=== PATIENT | male | born 1955 | race Caucasian/White ===

== ENCOUNTER → 2016-08-26 | Outpatient (CLI) | payer OTHER ==
[~2016-08-26] MED LIST: ALBUTEROL 0.083% (NEB) 2.5 MG/3 ML AMP ONE
[2016-08-26 14:23] LABS: AADO2 Arterial 24.2 mmHg (7.0-24.0); Allen Test ACCEPTAB; Arterial Base Excess 0.5 mmol/L (-3.0-3); Arterial COHb 0.2 % (0.0-3.0); Arterial Fraction of Oxyhgb 95.3 % (93.0-99.0); Arterial HCO3 25.3 mmol/L (22.0-26.0); Arterial MetHb 0.3 % (0.0-1.5); Arterial Total Hemglobin 16.9 g/dl (12.0-18.0); MODE ROOM AIR
== END | disposition home or self-care (01) ==
LOC: PUL 13:59
PROVIDERS: ATTEND Family Medicine
DX: K46.9 Unspecified abdominal hernia without obstruction or gangrene (principal); R05 Cough
CPT/HCPCS: 36600; 82803; 94060; 94726; 94729; Z7610

== ENCOUNTER 2016-10-28 10:32 | Day surgery (SDC) | payer OTHER ==
[2016-10-25 15:36] VITALS: BMI 31.4
[~2016-10-28] VITALS: Ht 182.9 cm; Wt 107.1 kg
[2016-10-28] VITALS (16 sets, daily range): BP systolic 118–166; BP diastolic 67–91; PULSE 74–84; RESP 10–22; Ht 182.9 cm; Wt 107.1 kg
[~2016-10-28 10:32] MED LIST changes: -ALBUTEROL 0.083% (NEB) 2.5 MG/3 ML AMP ONE; +CEFAZOLIN 2 GM/50 ML (PMX) 50 ML IVPB ONE; +SOD CHLORIDE 0.9% 1,000 ML IV SCH
[2016-10-28] MEDS ORDERED: ATOR20TA38 PO (11:06)
[2016-10-28] MEDS ORDERED: DOXY100T20 PO (11:07)
[2016-10-28] MEDS ORDERED: BUPIVACAINE 0.25% (MPF) 10 ML 10 ML VIAL ONE (12:11)
[2016-10-28] MEDS ORDERED: MIDAZOLAM 1 MG/ML 2 ML INJ ONE ×2 (12:30→14:09)
[2016-10-28] MEDS ORDERED: PROPOFOL 20 ML ONE (12:30)
[2016-10-28] MEDS ORDERED: FENTAnyl 50 MCG/ML VIAL ONE ×2 (12:30→13:52)
[2016-10-28] MEDS ORDERED: LIDOCAINE 2% (SDV) 5 ML INJ ONE (12:30)
[2016-10-28] MEDS ORDERED: ROCURONIUM 50 MG INJ ONE (12:30)
[2016-10-28] MEDS ORDERED: ROPIVACAINE 0.5 % 30 ML VIAL ONE (12:43)
[2016-10-28] MEDS ORDERED: CEFAZOLIN 1 GM INJ ONE (12:50)
[2016-10-28] MEDS ORDERED: ONDANSETRON 4 MG INJ ONE (12:54)
[2016-10-28] MEDS ORDERED: DEXAMETHASONE 4 MG/ML 1 ML INJ ONE (12:54)
[2016-10-28] MEDS ORDERED: BUPIVACAINE 0.25% (MPF) 30 ML INJ ONE (12:59)
[2016-10-28] MEDS ORDERED: BUPIVACAINE 0.25% (MPF) 10 ML 10 ML VIAL INJ ONE (13:00)
[2016-10-28] MEDS ORDERED: POLYMYXIN/BACITRACIN 1L IRRIG ONE (13:11)
[2016-10-28] MEDS ORDERED: HYDROCODONE/APAP (5/325) TAB PO ONE (13:30)
[2016-10-28] MEDS ORDERED: SUGAMMADEX SODIUM 200 MG/2 ML VIAL IV ONE (13:31)
--- NOTE | 2016-10-28 13:31 | OPR ---
Date/Time of Note Date/Time of Note DATE: 10/28/16 TIME: 13:25 Operative Report Procedure Date: Oct 28, 2016 Preoperative Diagnosis incarcerated ventral hernia Postoperative Diagnosis same Operation Performed 1. open repair of incarcerated ventral hernia cpt code 26756 2. implantation of mesh cpt code 19722 3. therapeutic injection of subcutaneous marcaine cpt code 86120 Surgeon: Oneil WITT Indications This is a 61-year-old male with an incarcerated ventral hernia. He has a history of a prior laparotomy for peritonitis. Patient is scheduled to undergo an open hernia repair with mesh. Risks alternatives benefits and percent were discussed the patient. Patient expresses understanding consents to the operation. Procedure Description Patient is taken to the OR and prepped and draped in usual sterile fashion surgical timeout was performed IV antibiotics are given. Mid epigastric midline incision is made with a 10 blade dissection cautery was carried onto the hernia. Incarcerated hernia contents are identified. Careful dissection is made of the hernia defect. This defect is then extended superiorly in the midline to allow for reduction of the incarcerated hernia. After the hernias reduced fascial edges are freshened on all sides and directions. The fascia was grasped with Caroleen's. Interrupted #1 Prolene is used to secure the underlay mesh of [address] There is underlay coverage of approximately 45 cm on all directions. The hernia defect is then closed primarily with a running #1 loop PDS. The skin is then closed with skin martin. Therapeutic injection of subcutaneous Marcaine is performed. Dry dressings were applied. Oneil WITT Oct 28, 2016 13:31
[2016-10-28] MEDS: HYDROmorphONE (0.2 MG/ML) 10ML SYG IV PRN ×4 (13:44→14:46)
[2016-10-28] MEDS: FENTAnyl 50 MCG/ML VIAL IV PRN ×3 (13:45→14:46)
[2016-10-28] MEDS ORDERED: HYDROmorphONE (0.2 MG/ML) 10ML SYG IV ONE (13:46)
[2016-10-28] MEDS ORDERED: ONDANSETRON 4 MG INJ IV PRN (14:00)
[2016-10-28] MEDS ORDERED: DIPHENHYDRAMINE 50 MG INJ IV PRN (14:00)
[2016-10-28] MEDS ORDERED: MEPERIDINE 25 MG INJ IV PRN (14:00)
[2016-10-28] MEDS ORDERED: PROCHLORPERAZINE 10 MG INJ IV PRN (14:00)
[2016-10-28] MEDS ORDERED: MIDAZOLAM 1 MG/ML 2 ML INJ IV PRN (14:30)
[2016-10-28] MEDS ORDERED: OXYCODONE/ACETAMINOPHEN (5/325) TAB PO ONE ×2 (15:00→15:30)
[2016-10-28] MEDS ORDERED: OXYCODONE/ACETAMINOPHEN (5/325) TAB ONE (15:01)
== END 2016-10-28 16:15 | disposition home or self-care (01) ==
LOC: SDS 10:32
PROVIDERS: ATTEND Surgery
DX: K43.6 Other and unspecified ventral hernia with obstruction, without gangrene (principal); E66.9 Obesity, unspecified; Z68.32 Body mass index [BMI] 32.0-32.9, adult
CPT/HCPCS: 49561; 49568; C1781; J0690; J1100; J1170; J1200; J2175; J2250; J2405; J2795; J3010; Z7512; Z7610

== ENCOUNTER 2016-11-11 01:40 | Emergency (ER) | payer OTHER ==
[~2016-11-11 01:40] MED LIST changes: +ATOR20TA38 PO; -CEFAZOLIN 2 GM/50 ML (PMX) 50 ML IVPB ONE; +DOXY100T20 PO; -SOD CHLORIDE 0.9% 1,000 ML IV SCH
[2016-11-11] MEDS ORDERED: METR500T PO (02:28)
[2016-11-11] MEDS ORDERED: CIPR500T4 PO (02:28)
[2016-11-11] MEDS ORDERED: OXYC-209 PO (02:28)
[2016-11-11] MEDS ORDERED: VANCOMYCIN 1 GM (PMX) 250 ML IVPB SCH (02:30)
[2016-11-11] MEDS ORDERED: PIPER-TAZO 3.375 GM IV (PMX) 100 ML IVPB ONE (02:30)
--- NOTE | 2016-11-11 03:39 | ERD ---
ER Documentation Chief Complaint Date/Time DATE: 11/11/16 TIME: 03:36 Chief Complaint Abdominal pain HPI Patient is a 61-year-old male who presents with abdominal pain. The patient has bleeding from the surgical site as well as abdominal pain. He had surgery 1 -[address] Glass. He called Dr. Glass who told to go to emergency department. The pain is sharp and constant. ROS All systems reviewed and are negative except as per history of present illness. Medications Home Meds Active Scripts Oxycodone HCl/Acetaminophen (Percocet 10-325 mg Tablet) 1 Each Tablet, 1 EACH PO Q6, #12 TAB Prov:AIDE SALTER MD 11/11/16 Metronidazole* (Flagyl*) 500 Mg Tablet, 500 MG PO TID for 7 Days, TAB Prov:AIDE SALTER MD 11/11/16 Ciprofloxacin Hcl* (Ciprofloxacin Hcl*) 500 Mg Tablet, 500 MG PO BID for 7 Days , TAB Prov:AIDE SALTER MD 11/11/16 Reported Medications Doxycycline Hyclate* (Doxycycline Hyclate*) 100 Mg Tablet., 100 MG PO BID, TAB 10/28/16 Atorvastatin Calcium* (Atorvastatin Calcium*) 20 Mg Tablet, 20 MG PO QHS, #30 TAB 10/28/16 Allergies Allergies: Coded Allergies: No Known Allergies (Verified Allergy, Unknown, 10/28/16) PMhx/Soc History of Surgery: Yes (RT TESTICLE SX 8 MOS AGO,APPY WITH COMPLICATION( PERITONITIS)) Anesthesia Reaction: No Hx Neurological Disorder: No Hx Respiratory Disorders: Yes (COPD/ASTHMA) Hx Cardiac Disorders: No Hx Psychiatric Problems: No Hx Miscellaneous Medical Probl: Yes Hx Alcohol Use: No Hx Substance Use: No Hx Tobacco Use: No FmHx Family History: No diabetes Physical Exam Physical Exam Const: Moderate distress secondary to pain Head: Atraumatic Eyes: Normal Conjunctiva ENT: Normal External Ears, Nose and Mouth. Neck: Full range of motion..~ No meningismus. Resp: Clear to auscultation bilaterally Cardio: Regular rate and rhythm, no murmurs Abd: Soft, distended abdomen, mild dehiscence of the surgical site wound, no obvious julien bleeding at this time Skin: No petechiae or rashes Back: No midline or flank tenderness Ext: No cyanosis, or edema Neur: Awake and alert Psych: Normal Mood and Affect Results 24 hrs Current Medications Medications (Trade) Dose Ordered Sig/Charles Route PRN Reason Start Time Stop Time Status Last Admin Dose Admin Piperacillin Sod/ Tazobactam Sod 100 ml @ 200 mls/hr ONCE ONCE IVPB 11/11/16 02:30 11/11/16 02:30 DC Vancomycin HCl (Vancocin) 250 ml @ 125 mls/hr ONCE IVPB 11/11/16 02:30 11/11/16 02:30 DC Procedures/MDM CT scan done shows post surgical subcutaneous and intra-abdominal abscess at the ventral midline lower abdomen with adjacent surrounding flat inflammatory changes per radiology. Laboratory studies show a normal white blood cell count and normal electrolytes and LFTs as well as lipase. Urinalysis shows no signs of acute infection. Patient is a 61-year-old male who presents with abdominal pain and intra- abdominal abscess. I wanted to admit him to the hospital but he is adamantly refusing at this time. The patient wants to leave and follow-up with his surgeon as an outpatient. I will give him Cipro and Flagyl as well as [place] for pain. I did want to admit the patient with the patient is going to leave AGAINST MEDICAL ADVICE. The patient can return for any worsening symptoms. Please note that the patient was initially registered under the name Roger Ayala and the laboratory results and CT scan results would be under that name. Departure Diagnosis: Primary Impression: Abscess Additional Impression: Post surgical complication Surgical complication system/body Area: skin Surgical complication type: unspecified Procedure type: non-dermatologic Qualified Code: L76.82 - Postoperative surgical complication involving skin associated with non- dermatologic procedure, unspecified complication Condition: Fair Patient Instructions: Post Op Wound Check, Infection Referrals: Oneil GLASS Additional Instructions: SPECIALIST: YOU HAVE A MEDICAL CONDITION WHICH REQUIRES YOU TO SEE A SPECIALIST WITHIN THE NEXT 1-2 DAYS. PLEASE FOLLOW UP WITH YOUR PRIMARY PHYSICIAN FOR REFFERAL.IF YOU DO NOT HAVE A PRIMARY CARE PHYSICIAN AND/OR YOU CAN NOT AFFORD TO SEE A PHYSICIAN THE FOLLOWING RESOURCES HAVE BEEN SUPPLIED TO YOU. IT IS YOUR RESPONSIBILITY TO BE SEEN BY THE SPECIALIST AIDE SALTER MD Nov 11, 2016 03:39
== END 2016-11-11 02:45 | disposition left against medical advice (07) ==
LOC: E/R 01:40
DX: T81.4XXA Infection following a procedure, initial encounter (principal); L76.82 Other postprocedural complications of skin and subcutaneous tissue; J44.9 Chronic obstructive pulmonary disease, unspecified
CPT/HCPCS: 74177; 80053; 81001; 83690; 85025; J1170; J2405; J7030; Q9967; Z7502; Z7610; 99284

== ENCOUNTER 2018-12-03 08:02 | Day surgery (SDC) | payer OTHER ==
[~2018-12-03] VITALS: Ht 182.9 cm; Wt 116.6 kg
[2018-12-03] VITALS (35 sets, daily range): BP systolic 90–133; BP diastolic 49–84; PULSE 52–82; RESP 11–68; Ht 182.9 cm; Wt 116.6 kg
[~2018-12-03 08:02] MED LIST changes: +AMLO2.5T2 PO; +CEFAZOLIN 2 GM/50 ML (PMX) 50 ML IVPB ONE; +CIPR500T4 PO; +METR500T PO; +OXYC-209 PO; +SOD CHLORIDE 0.9% 1,000 ML IV SCH
[2018-12-03] MEDS ORDERED: ONDANSETRON 4 MG INJ IV PRN (09:30)
[2018-12-03] MEDS ORDERED: DIPHENHYDRAMINE 50 MG INJ IV PRN (09:30)
[2018-12-03] MEDS ORDERED: hydrALAzine 20 MG INJ IV PRN (09:30)
[2018-12-03] MEDS ORDERED: PROCHLORPERAZINE 10 MG INJ IV PRN (09:30)
[2018-12-03] MEDS ORDERED: MEPERIDINE 25 MG INJ IV PRN (09:30)
[2018-12-03] MEDS ORDERED: HYDROmorphONE 1 MG/5 ML IV SYRINGE IV PRN ×3 (09:30)
[2018-12-03] MEDS ORDERED: LABETALOL HCL 20MG INJ IV PRN (09:30)
[2018-12-03] MEDS ORDERED: BUPIVACAINE 0.25% (MPF) 30 ML INJ ONE (09:31)
[2018-12-03] MEDS ORDERED: LIDOCAINE 2% (MDV) 20 ML INJ ONE (09:32)
[2018-12-03] MEDS ORDERED: MIDAZOLAM 1 MG/ML 2 ML INJ ONE (09:37)
[2018-12-03] MEDS ORDERED: PROVENTIL HFA 6.7GM INHALER ONE (09:38)
[2018-12-03] MEDS ORDERED: PROPOFOL 20 ML ONE ×2 (09:58→10:15)
[2018-12-03] MEDS ORDERED: DEXAMETHASONE 4 MG/ML 5 ML INJ ONE (09:58)
[2018-12-03] MEDS ORDERED: ONDANSETRON 4 MG INJ ONE (09:58)
[2018-12-03] MEDS ORDERED: LIDOCAINE 2% (SDV) 5 ML INJ ONE (09:58)
[2018-12-03] MEDS ORDERED: FAMOTIDINE 20 MG INJ ONE (09:58)
[2018-12-03] MEDS ORDERED: EPHEDrine 25 MG/5 ML SYG ONE (10:01)
[2018-12-03] MEDS ORDERED: CEFAZOLIN 1 GM INJ ONE (10:01)
[2018-12-03] MEDS ORDERED: BUPIVACAINE 0.5% (SDV) 30 ML INJ ONE (10:07)
[2018-12-03] MEDS ORDERED: FENTAnyl 50 MCG/ML VIAL ONE (10:07)
[2018-12-03] MEDS ORDERED: HYDROCODONE/APAP (5/325) TAB PO ONE (10:30)
[2018-12-03] MEDS: FENTAnyl 50 MCG/ML VIAL IV PRN ×3 (12:23→12:39)
[2018-12-03] MEDS ORDERED: OXYCODONE/ACETAMINOPHEN (5/325) TAB ONE (12:34)
[2018-12-03] MEDS ORDERED: HYDROmorphONE 1 MG/ML SYG IV PRN ×3 (14:00)
[2018-12-03] MEDS ORDERED: OXYCODONE/ACETAMINOPHEN (5/325) TAB PO ONE (17:00)
== END 2018-12-03 14:22 | disposition home or self-care (01) ==
LOC: SDS 08:02
PROVIDERS: ATTEND Surgery
DX: D21.3 Benign neoplasm of connective and other soft tissue of thorax (principal); I10 Essential (primary) hypertension; E66.9 Obesity, unspecified; E78.5 Hyperlipidemia, unspecified
CPT/HCPCS: 14041; 88307; J0690; J1100; J1170; J2250; J2405; J3010; Z7512; Z7610